=== PATIENT | female | born 1930 | race Caucasian/White ===

== ENCOUNTER 2017-04-24 01:09 | Inpatient (IN) | payer OTHER, BC ==
[~2017-04-24] VITALS: Ht 157.5 cm; Wt 119.1 kg
--- NOTE | ~2017-04-24 | HC ---
[facility] [place] [address] CONSULTATION Name: MIGUEL NAVAS Room #: 201-P [facility] IN M.R.#: [id number] Admission: 04/24/17 Attend Phys: Abraham Verde MD Discharge: Date of : 31 Report #: [id number] THIS REPORT FOR: //name// CC: Abraham Verde Suhas Akkulugari DATE OF SERVICE: 04/25/2017 CHIEF COMPLAINT: Blistering and swelling of lower extremities. HISTORY OF PRESENT ILLNESS: This is an 86-year-old white female patient who is a resident at [facility], who has had increasing shortness of breath and swelling of her lower extremities and was admitted to the hospital for ongoing treatment and evaluation. She is likely having respiratory distress due to volume overload, which is also worsening her lower extremity lymphedema. PAST MEDICAL HISTORY: Positive for history of morbid obesity, COPD, hyperlipidemia, hypertension and lymphedema. SOCIAL HISTORY: The patient is a former smoker. No history of alcohol use. No drug use. MEDICATIONS: Amlodipine, clobetasol, DuoNeb, Byron, Lasix, Levaquin, Metamucil, Toprol-XL, Remeron, simvastatin, vitamin D3, Synthroid. REVIEW OF SYSTEMS: CONSTITUTIONAL: The patient denies fever, chills or weight loss. NEUROLOGICAL: The patient has focal weakness, numbness, or tingling. EYES: The patient denies visual changes, redness, or drainage. ENT: The patient denies earache, nasal drainage, sore throat. CARDIOVASCULAR: The patient denies chest pain, palpitations, or diaphoresis. PULMONARY: The patient does have cough with some sputum production. Denies hemoptysis. GASTROINTESTINAL: The patient denies nausea, diarrhea or abdominal pain. ORTHOPEDIC: The patient does complain of pain and some swelling of both lower extremities. Other systems in a 12-point review of systems are negative. PHYSICAL EXAMINATION: VITAL SIGNS: At this time include pulse 61, respiratory rate of 18, blood pressure 116/53, temperature 96.9. GENERAL: This is a chronically ill-appearing female patient, appears to be in minimal distress. HEENT: Normocephalic. Nose and throat clear. NECK: Supple. LUNGS: Diminished. HEART: Regular rhythm. [address] [address] CONSULTATION Name: MIGUEL NAVAS Room #: 201-P [facility] IN M.R.#: [id number] Admission: 04/24/17 Attend Phys: Abraham Verde MD Discharge: Date of : 31 Report #: [id number] ABDOMEN: Obese, soft, nontender. EXTREMITIES: Lower extremities demonstrate diminished distal pulses, but the skin appears to be pink, warm, and dry with relatively normal capillary refill. She has 3+ edema to both lower extremities, minimal erythema. There is blistering on the medial aspects of both lower legs just below the knees. It is relatively superficial and no evidence of infection. NEUROLOGIC: The patient is alert, oriented, and appropriate. LABORATORY DATA: Includes sodium 138, potassium 3.8, chloride 101, CO2 31, BUN 25, creatinine 0.9, glucose 116. ProBNP is 1000. White blood cell count 5.4, hemoglobin 10.3, hematocrit of 30.3, platelet count 236,000. CLINICAL IMPRESSION: 1. Bilateral lower extremity edema with a history of underlying lymphedema and several small areas of blistering due to volume overload. 2. Congestive heart failure. 3. Morbid obesity. RECOMMENDATIONS: At this point in time, we will recommend lymphedema therapy and gentle compression with long stretch bandages. We will recommend nonadherent dressing over the blistered areas. She is continuing to get diuresis. All questions have been answered. I appreciate being asked to see her in consultation. <ELECTRONICALLY SIGNED> By: Lawrence Van MD 04/26/17 1004 1807 1921 Lawrence Van MD /nt
--- NOTE | ~2017-04-24 | 2DMMODE ---
[facility] [address] [place] [address] 2 D/M-MODE ECHOCARDIOGRAM Name: MIGUEL NAVAS Room #: 201-P [facility] IN ..#: [id number] Admission: 04/24/17 Attend Phys: Abraham Verde MD Discharge: Date of : 31 Date of Service: 04/24/17 1716 Report #: [id number] THIS REPORT FOR: //name// APPROVED REPORT Study performed: 04/24/2017 12:47:21 EXAM: Comprehensive 2D, Doppler, and color-flow Echocardiogram Patient Location: Bedside Room #: 201 Status: routine BSA: 2.15 HR: 47 bpm BP: 115/56 mmHg Rhythm: Bradycardia Other Information Study Quality: Adequate Technically limited study due to morbid obesity and limited mobility, . Risk Factors: Cardiac Risk Factors: HTN, Hyperlipidemia, DM, Diabetes (insulin), Diabetes (non-insulin) Indications Elevated BNP, HTN 2D Dimensions LVEF(%): 59.18 (>50%) IVSd: 9.85 (7-11mm) LVOT Diam: 20.46 (18-24mm) LVDd: 48.75 mm PWd: 10.69 (7-11mm) Ascending Ao: 31.09 (22-36mm) LVDs: 33.42 (25-40mm) Aortic Root: 32.48 mm Ho's LVEF: 59.18 % Volumes Left Atrial Volume (Systole) Single Plane 4CH: 54.64 mL Single Plane 2CH: 80.85 mL Aortic Valve AoV Peak Gregory.: 1.42 m/s AO Peak Gr.: 8.10 mmHg LVOT Max P.13 mmHg LVOT Max V: 0.88 m/s [facility] [place] [address] 2 D/M-MODE ECHOCARDIOGRAM Name: MIGUEL NAVAS Room #: 201-P [facility] IN .R.#: [id number] Admission: 04/24/17 Attend Phys: Abraham Verde MD Discharge: Date of : 31 Date of Service: 04/24/17 1716 Report #: [id number] ANNY Vmax: 2.04 cm2 Mitral Valve E/A Ratio: 1.6 MV Decel. Time: 152.41 ms MV E Max Gregory.: 0.94 m/s MV A Gregory.: 0.58 m/s MV PHT: 44.20 ms IVRT: 50.75 ms Pulmonary Valve PV Peak Gregory.: 0.81 m/s PV Peak Gr.: 2.60 mmHg Pulmonary Vein P Vein S: 0.42 m/s P Vein A: 0.24 m/s P Vein D: 0.50 m/s P Vein A Dur.: 115.3 msec P Vein S/D Ratio: 0.84 Tricuspid Valve TR Peak Gregory.: 3.45 m/s RAP Estimate: 15.00 mmHg TR Peak Gr.: 47.66 mmHg PA Pressure: 63.00 mmHg Left Ventricle The left ventricle is normal size. There is normal LV segmental wall motion. There is normal left ventricular wall thickness. Left ventricular systolic function is normal. LVEF is 55%. Moderate diastolic dysfunction is present (pseudonormal filling). Right Ventricle Right ventricle is not well visualized. The right ventricular systolic function is normal. Atria Left atrium is dilated. Right atrium is dilated. Aortic Valve The aortic valve is mildly sclerotic. No aortic regurgitation is present. There is no aortic valvular stenosis. Mitral Valve The mitral valve is normal in structure. Mild mitral regurgitation. Tricuspid Valve The tricuspid valve is normal in structure. Moderate tricuspid [facility] [address] [place] [address] 2 D/M-MODE ECHOCARDIOGRAM Name: MIGUEL NAVAS Room #: 201-P [facility] IN M.R.#: [id number] Admission: 04/24/17 Attend Phys: Abraham Verde MD Discharge: Date of : 31 Date of Service: 04/24/17 1716 Report #: [id number] regurgitation. Estimated PAP is 60-65mmHg. Pulmonic Valve The pulmonary valve is normal in structure. Trace pulmonic regurgitation. Great Vessels The aortic root is normal in size. The ascending aorta is normal in size. IVC is dilated and collapses <50% with inspiration. Pericardium There is no pericardial effusion. Left and right pleural effusions noted. <Conclusion> Left ventricular systolic function is normal. LVEF is 55%. Normal LV segmental wall motion. Moderate diastolic dysfunction is present (pseudonormal filling). Both atria are dilated. The aortic valve is mildly sclerotic. No stenosis or insufficiency The mitral valve is normal in structure. Mild mitral regurgitation. Moderate tricuspid regurgitation. Estimated pulmonary artery pressure 60-65mmHg. There is no pericardial effusion. <ELECTRONICALLY SIGNED> By: Sai Morocho MD, FACC 04/24/171715 15 15 Sai Morocho MD, FACC /INF
--- NOTE | ~2017-04-24 | EKG ---
[place] [address] [facility] [place] [address] ELECTROCARDIOGRAM REPORT Name: MIGUEL NAVAS Room #: 201-P [facility] IN M.R.#: [id number] Admission: 04/24/17 Attend Phys: Abraham Verde MD Discharge: Date of : 31 Report #: [id number] THIS REPORT FOR: //name// [facility] ED Test Date: 2017-04-24 Test Time: 02:35:47 Pat Name: MIGUEL NAVAS Department: Room: 201 Gender: F Branch Account Manager: MZOOK : 1930 Requested By: Wendy Gonzales Order Number: [id number] MD: Sai Morocho Measurements Intervals [place] Rate: 43 P: 23 ME: 169 QRS: -44 QRSD: 164 T: 78 QT: 526 QTc: 445 Interpretive Statements Sinus bradycardia RBBB and LAFB Compared to ECG 12/03/2005 07:56:39 Left anterior fascicular block now present Right bundle-branch block now present Heart rate is slower Electronically Signed On 04-24-2017 8:10:34 [employer] by Sai Morocho [email or web address] <ELECTRONICALLY SIGNED> By: Sai Morocho MD, [facility] 04/24/17 0810 0235 0235 Sai Morocho MD, [facility] /EPI
--- NOTE | ~2017-04-24 | HC ---
[facility] [place] [address] CONSULTATION Name: MIGUEL NAVAS Room #: 201-P [facility] IN M.R.#: [id number] Admission: 04/24/17 Attend Phys: Abraham Verde MD Discharge: Date of : 31 Report #: [id number] THIS REPORT FOR: //name// CC: Abraham Verde Formerly [facility] PRIMARY CARE PHYSICIAN: Abraham Estevez MD REFERRAL PHYSICIAN: Sosa Nicole MD REASON FOR REFERRAL: Questionable COPD, questionable pulmonary hypertension. HISTORY OF PRESENT ILLNESS: The patient is an 86-year-old white female who presents to the Emergency Room with increasing dyspnea. A pulmonary consultation was requested. The patient states that she has been doing fairly well until recently. She slipped and fell at home. She sustained right wrist fracture. Following this, she was sent to a long-term for rehabilitation at [facility]. It should be noted that the patient is a fair historian. I am not able to get adequate history from the patient. She states that her symptoms started about a week ago with increasing dyspnea, fatigue. With worsening symptoms, she was transferred to the Emergency Room. Chest x-ray on admission revealed small bilateral pleural effusion, cardiomegaly. Otherwise, denies any recent sore throat, chest pain, hemoptysis. She did note mild yellow sputum. The patient does mention daytime fatigue and sleepiness where she finds herself falling asleep, eating meals. PAST MEDICAL HISTORY: Notable for hypertension, failure to thrive, recent fall with dislocation of the right 4th metacarpal, questionable COPD, the patient has smoked, but quit more than 50 years ago. She denies any history of asthma. PAST SURGICAL HISTORY: Unremarkable. ALLERGIES: None noted. MEDICATIONS: From the long-term include amlodipine, DuoNeb, hydrocodone, Lasix, Levaquin, Metamucil, Toprol XL, Remeron, simvastatin, Levothroid. FAMILY HISTORY: Noncontributory. [facility] [address] [place] [address] CONSULTATION Name: MIGUEL NAVAS Room #: 201-P [facility] IN .R.#: [id number] Admission: 04/24/17 Attend Phys: Abraham Verde MD Discharge: Date of : 31 Report #: [id number] SOCIAL HISTORY: She lives with her son. 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 She quit smoking more than 50 years ago. She denies any alcohol use. REVIEW OF SYSTEMS: As mentioned above. It is notable for increasing lower extremity edema recently. Generalized debility. Otherwise, 10-point system review negative. PHYSICAL EXAMINATION: GENERAL: She is awake, alert, appears mildly dyspneic. VITAL SIGNS: Temperature is 97 degrees Fahrenheit, pulse is 60, respiratory rate is 20, blood pressure 120/60 mmHg, saturation 93%. HEENT: Normocephalic, atraumatic. NECK: Supple, without lymphadenopathy or thyromegaly. CHEST: Breath sounds are decreased with mild expiratory wheezes, but most of the wheezes appears to come from the upper airways. CARDIOVASCULAR: Normal S1, S2. No murmurs or gallop. There is no JVD. There is no carotid bruit. Pulses are 2+/4+ bilaterally. BREASTS: Exam is deferred. ABDOMEN: Moderately obese, soft, nontender, no organomegaly or masses felt. GENITOURINARY: Deferred. RECTAL: Deferred. EXTREMITIES: No cyanosis or clubbing. It is notable 2-3+ bilateral pretibial edema. Chronic stasis dermatitis noted along with blisters. NEUROLOGIC: Notable for progressive weakness. LABORATORY DATA: Portable chest x-ray as mentioned above showing small bilateral pleural effusion, cardiomegaly. Echocardiogram revealed ejection fraction 55%, normal LV function, moderate diastolic dysfunction, dilated right and left atrium, mild mitral regurgitation, pulmonary artery pressure measuring 60-65 mmHg. Electrolytes are normal, creatinine 0.9. WBC 6300, hemoglobin is 10.8, platelets normal. IMPRESSION: 1. Acute respiratory distress in this 86-year-old white female. Chest x-ray shows small bilateral pleural effusion, cardiomegaly. Echocardiogram showed ejection fraction 55%, with moderate diastolic dysfunction. She appears to have chronic lower extremity edema with venous stasis. She is moderately obese. The patient has smoked, but quit more than 50 years ago. Etiology is probably due to acute on chronic diastolic heart failure, likely related to pulmonary hypertension/cor pulmonale related to possible sleep related breathing disorder. I do not think she has chronic obstructive pulmonary disease without significant history of asthma or tobacco use. It appears the patient has been placed on bronchodilators. Pneumonia is felt to be less likely. 2. Marked lymphedema of lower extremities with stasis dermatitis, blisters. As mentioned above, the patient is felt to have acute on chronic heart failure. 3. Daytime fatigue and sleepiness, obesity. The patient is at high risk for [facility] [address] [place] [address] CONSULTATION Name: MIGUEL NAVAS Room #: 201-P [facility] IN M.R.#: [id number] Admission: 04/24/17 Attend Phys: Abraham Verde MD Discharge: Date of : 31 Report #: [id number] sleep related breathing disorder. She should be screened for sleep apnea. Overnight oximetry study will be performed. Eventually, she will need a sleep study. 4. Remote history of tobacco use, questionable history of chronic obstructive pulmonary disease. Her bronchospasm may be in fact related to heart failure. Baseline pulmonary functions will be helpful. 5. Generalized debility, weakness and recent fall. RECOMMENDATION: I would agree with diuresis. Wean O2 for saturation 90%. We will perform an overnight oximetry study. I think it is reasonable to continue bronchodilators for now. We would like to get a baseline pulmonary functions if possible. Eventually, the patient will need a sleep study if patient is able as an outpatient. The pleural effusions are small. I will follow chest x-ray. It should improve with diuresis. Thank you for this consultation. <ELECTRONICALLY SIGNED> By: Kole Bruce MD 04/26/17 1610 1558 1824 Kole Bruce MD /nt
[2017-04-24 01:11] VITALS: BP 116/47
[2017-04-24] MEDS ORDERED: AMLODIPINE BESY10 MG PO (01:41)
[2017-04-24] MEDS ORDERED: CLOBETASOL EMOL15 GM TOP (01:42)
[2017-04-24] MEDS ORDERED: DUONEB 2.5-0.5 M3 ML INH (01:42)
[2017-04-24] MEDS ORDERED: NORCO 5-325 TA1 EACH (01:57)
[2017-04-24] MEDS ORDERED: LASIX 20 MG TAB20 MG PO (01:59)
[2017-04-24] MEDS ORDERED: LEVAQUIN 500 M500 M2 PO (02:00)
[2017-04-24] MEDS ORDERED: MILK OF MA2400 MG/10 PO (02:01)
[2017-04-24] MEDS ORDERED: METAMUCIL1 EAC1 PO (02:01)
[2017-04-24] MEDS ORDERED: TOPROL XL100 MG PO (02:01)
[2017-04-24] MEDS ORDERED: REMERON15 MG PO (02:02)
[2017-04-24] MEDS ORDERED: ATHENOL325 MG PO (02:02)
[2017-04-24] MEDS ORDERED: VITAMIN D350000 UNIT PO (02:03)
[2017-04-24] MEDS ORDERED: ZOCOR20 MG PO (02:03)
[2017-04-24 02:18] LABS: ABSOLUTE NEUTROPHILS 5.1 thou/uL (1.4-8.2); BASOPHILS 0.6 % (0.0-2.0); EOSINOPHILS 0.6 % (0.0-3.0); HEMATOCRIT 32.3 % (37.0-47.0); HEMOGLOBIN 10.8 gm/dL (12.0-15.0); LYMPHOCYTES 10.5 % (24.0-44.0); MCHC 33.2 g/dL (28.0-37.0); MCV 93.3 fL (80.0-100.0); MONOCYTES 6.8 % (1.0-8.0); PLATELET COUNT 271 thou/uL (150-400); POLYS 81.5 % (36.0-66.0); RBC 3.47 mil/uL (4.20-5.00); RDW 14.2 % (10.5-14.5); WBC 6.3 thou/uL (4.0-11.0)
[2017-04-24 02:27] LABS: CALCIUM 9.4 mg/dL (8.5-10.1); POTASSIUM 4.1 mmol/L (3.5-5.1)
[2017-04-24] MEDS ORDERED: LEVOTHYROXINE100 MCG PO (04:16)
[2017-04-24 05:01] VITALS: BP 100/58
[2017-04-24 05:40] VITALS: BP 108/73
[2017-04-24 07:25] VITALS: BP 115/56
[2017-04-24 11:30] VITALS: BP 112/51
[2017-04-24 13:46] LABS: TSH 4.37 uIU/mL (0.358-3.740)
[2017-04-24 19:18] VITALS: BP 119/62
[2017-04-25 03:29] LABS: CALCIUM 9.1 mg/dL (8.5-10.1); CREATININE 0.9 mg/dL (0.6-1.0); MAGNESIUM 2.2 mg/dL (1.8-2.4); POTASSIUM 3.8 mmol/L (3.5-5.1)
[2017-04-25 04:15] LABS: ABSOLUTE NEUTROPHILS 4.8 thou/uL (1.4-8.2); HEMATOCRIT 30.3 % (37.0-47.0); HEMOGLOBIN 10.3 gm/dL (12.0-15.0); LYMPHOCYTES 7.4 % (24.0-44.0); MCH 31.7 pg (26.0-34.0); MCHC 34.1 g/dL (28.0-37.0); MONOCYTES 3.6 % (1.0-8.0); PLATELET COUNT 236 thou/uL (150-400); RBC 3.25 mil/uL (4.20-5.00); RDW 14.1 % (10.5-14.5); WBC 5.4 thou/uL (4.0-11.0)
[2017-04-25 06:19] VITALS: BP 131/58
[2017-04-25 08:35] VITALS: BP 124/64
[2017-04-25 11:41] VITALS: BP 120/60
[2017-04-25 16:53] VITALS: BP 116/53
[2017-04-25 17:38] LABS: HCO3 28.8 mmol/L (22.0-26.0); PCO2 44.4 mmHg (35.0-45.0); PO2 67.9 mmHg (80.0-100.0); sO2 93.9 % (92.0-98.0)
[2017-04-25 19:40] VITALS: BP 115/54
[2017-04-26 01:00] VITALS: BP 112/56
[2017-04-26 02:51] LABS: CALCIUM 9.1 mg/dL (8.5-10.1); CREATININE 1.2 mg/dL (0.6-1.0); POTASSIUM 3.8 mmol/L (3.5-5.1)
[2017-04-26 03:45] VITALS: BP 120/61
[2017-04-26 08:59] VITALS: BP 119/65
[2017-04-26 12:07] VITALS: BP 112/45
[2017-04-26 17:11] VITALS: BP 132/64
[2017-04-26 19:32] VITALS: BP 141/99
[2017-04-27 03:47] LABS: HEMATOCRIT 32.9 % (37.0-47.0); HEMOGLOBIN 11.1 gm/dL (12.0-15.0); MCH 31.6 pg (26.0-34.0); MCHC 33.7 g/dL (28.0-37.0); MCV 93.9 fL (80.0-100.0); RBC 3.5 mil/uL (4.20-5.00); RDW 14.5 % (10.5-14.5); WBC 9.5 thou/uL (4.0-11.0)
[2017-04-27 03:55] LABS: CALCIUM 9.1 mg/dL (8.5-10.1); CREATININE 0.9 mg/dL (0.6-1.0); MAGNESIUM 2.6 mg/dL (1.8-2.4); POTASSIUM 3.8 mmol/L (3.5-5.1)
[2017-04-27 04:50] VITALS: BP 114/65
[2017-04-27 08:26] VITALS: BP 133/66
[2017-04-27 11:58] VITALS: BP 121/63
[2017-04-27] MEDS ORDERED: COLACE100 MG PO (12:46)
[2017-04-27] MEDS ORDERED: ENOXAPARIN40 MG/0.1 SUBQ (12:46)
[2017-04-27] MEDS ORDERED: PROTONIX40 M1 PO (12:46)
[2017-04-27] MEDS ORDERED: PULMICORT0.5 MG/21 INH (12:46)
[2017-04-27] MEDS ORDERED: LISINOPRIL10 MG PO (12:46)
[2017-04-27] MEDS ORDERED: MUCINEX600 MG PO (12:46)
[2017-04-27] MEDS ORDERED: PREDNISONE 10 M10 M1 PO (12:50)
[2017-04-27 14:40] VITALS: BP 118/63
[2017-04-27 19:08] VITALS: BP 117/55
[2017-04-28 03:33] VITALS: BP 116/46
[2017-04-28 13:22] VITALS: BP 124/59
[2017-04-28 16:00] VITALS: BP 120/55
== END 2017-04-28 15:45 | disposition short-term general hospital (02) | DRG 291 ==
LOC: ER 01:09 → EROBS 03:48 → 2N 03:48
PROVIDERS: Emergency Medicine; Internal Medicine; Internal Medicine Pulmonary Disease; Nurse Practitioner
PROC: 5A09357 Assistance with Respiratory Ventilation, Less than 24 Consecutive Hours, Continuous Positive Airway Pressure (ICD-10-PCS; principal; 2017-04-27)
PROC: 5A09357 Assistance with Respiratory Ventilation, Less than 24 Consecutive Hours, Continuous Positive Airway Pressure (ICD-10-PCS; 2017-04-28)
DX: I11.0 Hypertensive heart disease with heart failure (principal); J96.20 Acute and chronic respiratory failure, unspecified whether with hypoxia or hypercapnia; J44.1 Chronic obstructive pulmonary disease with (acute) exacerbation; J90 Pleural effusion, not elsewhere classified; Z68.42 Body mass index [BMI] 45.0-49.9, adult; I50.31 Acute diastolic (congestive) heart failure; I89.0 Lymphedema, not elsewhere classified; I87.2 Venous insufficiency (chronic) (peripheral); E66.01 Morbid (severe) obesity due to excess calories; E78.5 Hyperlipidemia, unspecified; E87.70 Fluid overload, unspecified; S80.821A Blister (nonthermal), right lower leg, initial encounter; X58.XXXA Exposure to other specified factors, initial encounter; R06.03 Acute respiratory distress; E03.9 Hypothyroidism, unspecified; I27.20 Pulmonary hypertension, unspecified; R13.10 Dysphagia, unspecified; G47.33 Obstructive sleep apnea (adult) (pediatric); Z28.21 Immunization not carried out because of patient refusal; Z87.891 Personal history of nicotine dependence; Y93.89 Activity, other specified; Y92.89 Other specified places as the place of occurrence of the external cause; Y99.8 Other external cause status; Z79.899 Other long term (current) drug therapy; Z87.81 Personal history of (healed) traumatic fracture
CPT/HCPCS: 10081